=== PATIENT | male | born 1960 | race Caucasian/White ===

== ENCOUNTER 2016-11-01 15:02 | Day surgery (SDC) | payer MEDICARE, MEDICAID ==
[~2016-11-01] VITALS: Ht 170.2 cm; Wt 86.2 kg
[~2016-11-01 15:02] MED LIST: BISOPROLOL FUMA1 TA4 PO; DOXAZOSIN 4MG TA4 MG PO; GABAPENTIN300 MG PO; GEMFIBROZIL600 MG PO; HYDROCODONE BIT1 T39 PO; HYDROCODONE-APA1 TA2 PO; LOVASTATIN20 MG PO; NEXIUM40 MG PO; PHENERGAN25 M3 PO; PRAVACHOL 20MG.20 MG PO; TRAZODONE 50MG50 MG PO; TRICOR160 MG PO; VALIUM 10MG TAB10 MG PO; ZANTAC 150150 MG PO; ZYRTEC 10MG TAB10 MG PO
[2016-11-01 15:21] VITALS: BP 154/83
[2016-11-01 15:33] VITALS: BP 154/83
[2016-11-01 15:35] VITALS: BP 154/83
[2016-11-01 15:50] VITALS: BP 144/81
--- NOTE | 2016-11-01 15:53 | Procedure Note ---
Procedure detail Date of procedure: 11/01/16 Anesthesiologist: Surendra Dupree CRNA Complications: None Pre-procedure diagnosis: Osteoarthritis bilateral knees Post-procedure diagnosis: Same Indications for procedure: Patient's a pleasant 56-year-old white male that we have been treating her pain clinic for chronic cervical neck pain. Chronic lumbar back pain. Most recently bilateral knee pain secondary to degenerative osteoporosis. Patient presents today for bilateral intra-articular knee injections. Patient has been told in the past he has severe degenerative osteoarthritis bilateral knees. He's had steroid injections in the past. These seem to give him 6-8 months of relief. Procedure detail: Details of procedure is going to the patient. The patient taken to procedure room and placed in a sitting position. Area over the lateral knees was cleansed using chlorhexidine as a cleansing solution. Using 25-gauge needle the RIGHT knee joint was access from the lateral inferior border of the patella. 3 mL of 0.25 percent Marcaine +3 mL of 1 percent lidocaine and 40mg of Depo-Medrol were injected. The same was carried out in the LEFT knee. Patient all the procedure without difficulty. There were no complications. Plan and disposition: Patient was reevaluated 10 minutes post procedure. He reports one or percent improved terms bilateral knee pain. at 1552
== END 2016-11-01 15:50 | disposition home or self-care (01) ==
LOC: PM 15:02
PROC: 3E0U33Z Introduction of Anti-inflammatory into Joints, Percutaneous Approach (ICD-10-PCS; principal; 2016-11-01)
PROC: 3E0U3BZ Introduction of Anesthetic Agent into Joints, Percutaneous Approach (ICD-10-PCS; 2016-11-01)
DX: M17.0 Bilateral primary osteoarthritis of knee (principal)
CPT/HCPCS: J1030

== ENCOUNTER 2017-05-02 12:57 | Day surgery (SDC) | payer MEDICARE, MEDICAID ==
[~2017-05-02] VITALS: Ht 170.2 cm; Wt 83.9 kg
[2017-05-02 13:29] VITALS: BP 112/66
[2017-05-02 13:49] VITALS: BP 112/66
[2017-05-02 13:51] VITALS: BP 126/81
--- NOTE | 2017-05-02 14:03 | Procedure Note ---
Procedure detail Date of procedure: 05/02/17 Anesthesiologist: Surendra Dupree Complications: None Pre-procedure diagnosis: Degenerative disc disease lumbar spine multiple spread lumbar facet arthropathy. Lumbar spondylosis. Post-procedure diagnosis: Same. Indications for procedure: Very pleasant 57-year-old white male that comes our procedure clinic today for radial frequency ablation on the LEFT at L4-5 and L5-S1. Patient responded very well to medial branch blocks at the same levels. He'll return in 2 weeks for the RIGHT side same levels. Patient was scheduled originally for RIGHT side RFA L4-5 and L5-S1. After examination today patient has more pain on the LEFT lower lumbar area. Patient requesting LEFT L4-5 and L5-S1 RFA prior to the RIGHT. Procedure detail: The procedure was explained to the patient in detail. Consent form was signed. Patient was taken back to the procedure room, where noninvasive monitors were placed. This included noninvasive blood pressure cuff and pulse oximeter. The patient was placed prone on the C-arm table. The area over the lumbar spine was cleansed using chlorhexidine as cleansing solution. Using fluoroscopy guidance, markers were placed over the pedicle at the LEFT 4-5, L5-S1. 1% Lidocaine was used to anesthetize the skin with a 25-gauge needle at these markers. Using fluoroscopy guidance the radiofrequency probe was used to access the superior margin of the pedicle at LEFT L4-5 and L5-S1. After negative motor stimulation, 2 mls of 0.25% Marcaine and 10 mg of Depo-Medrol were injected into each needle. We then proceeded with radial frequency ablation at all 3 levels at 80 degrees Celsius 60 seconds. After the lesion was formed the needles were withdrawn. Band-Aids were applied. The patient tolerated the procedure without difficulty. There were no complications Plan and disposition: Patient was reevaluated 10 minutes post procedure. He's doing very well. He'll return to see us in 2 weeks for the RIGHT side L4-5 and L5-S1 RFA. at 1402
[2017-05-02 14:06] VITALS: BP 130/70
== END 2017-05-02 14:07 | disposition home or self-care (01) ==
LOC: PM 12:57
PROC: 3E0T3TZ Introduction of Destructive Agent into Peripheral Nerves and Plexi, Percutaneous Approach (ICD-10-PCS; principal; 2017-05-02)
PROC: BR161ZZ Fluoroscopy of Lumbar Facet Joint(s) using Low Osmolar Contrast (ICD-10-PCS; 2017-05-02)
DX: M51.36 Other intervertebral disc degeneration, lumbar region (principal); M12.88 Other specific arthropathies, not elsewhere classified, other specified site; M47.896 Other spondylosis, lumbar region
CPT/HCPCS: J1030

== ENCOUNTER → 2017-05-16 | Day surgery (SDC) | payer MEDICARE, MEDICAID ==
[~2017-05-16] VITALS: Ht 170.2 cm; Wt 83.9 kg
[~2017-05-16] MED LIST changes: +SYMBICORT1 AE1 IH
[2017-05-16 14:30] VITALS: BP 140/80
[2017-05-16 15:12] VITALS: BP 115/72; BP 140/80
[2017-05-16 15:14] VITALS: BP 127/79
[2017-05-16 15:38] VITALS: BP 128/82
--- NOTE | 2017-05-16 15:49 | Procedure Note ---
Procedure detail Date of procedure: 05/16/17 Anesthesiologist: Surendra Dupree Complications: None Pre-procedure diagnosis: Degenerative disease lumbar spine multiple levels lumbar radiculopathy symptoms. Lumbar facet arthropathy. Lumbar spondylosis. Post-procedure diagnosis: Same. Indications for procedure: This patient's a very pleasant 57-year-old white male the returns for procedure clinic today for RIGHT side RFA L4-5, L5-S1. Patient is status post LEFT side RFA same levels. He reports significant improvement terms of LEFT side lumbar back pain. Procedure detail: The procedure was explained to the patient in detail. Consent form was signed. Patient was taken back to the procedure room, where noninvasive monitors were placed. This included noninvasive blood pressure cuff and pulse oximeter. The patient was placed prone on the C-arm table. The area over the lumbar spine was cleansed using chlorhexidine as cleansing solution. Using fluoroscopy guidance, markers were placed over the pedicle at the L4-5, L5-S1. 1% Lidocaine was used to anesthetize the skin with a 25-gauge needle at these markers. Using fluoroscopy guidance the radiofrequency probe was used to access the superior margin of the pedicle at L4-5, L5-S1. After negative motor stimulation, 2 mls of 0.25% Marcaine and 10 mg of Depo-Medrol were injected into each needle. We then proceeded with radial frequency ablation at all 3 levels at 80 degrees Celsius 60 seconds. After the lesion was formed the needles were withdrawn. Band-Aids were applied. The patient tolerated the procedure without difficulty. There were no complications Plan and disposition: Patient was evaluated 10 minutes post procedure. He's doing very well. He'll return to see us in pain clinic for further evaluation. at 1432
== END ==
LOC: PM 14:20
PROC: 3E0T3TZ Introduction of Destructive Agent into Peripheral Nerves and Plexi, Percutaneous Approach (ICD-10-PCS; principal; 2017-05-16)
PROC: BR161ZZ Fluoroscopy of Lumbar Facet Joint(s) using Low Osmolar Contrast (ICD-10-PCS; 2017-05-16)
DX: M54.06 Panniculitis affecting regions of neck and back, lumbar region (principal); M51.16 Intervertebral disc disorders with radiculopathy, lumbar region
CPT/HCPCS: J1030

== ENCOUNTER → 2017-07-04 | Day surgery (SDC) | payer MEDICARE, MEDICAID ==
[~2017-07-04] VITALS: Ht 170.2 cm; Wt 81.6 kg
[2017-07-04 15:09] VITALS: BP 128/79
[2017-07-04 15:48] VITALS: BP 128/79
[2017-07-04 15:51] VITALS: BP 153/101
[2017-07-04 16:00] VITALS: BP 141/77
--- NOTE | 2017-07-04 16:01 | Procedure Note ---
Procedure detail Date of procedure: 07/04/17 Anesthesiologist: Surendra Dupree Complications: None Pre-procedure diagnosis: Degenerative disc disease cervical. Cervical radiculopathy symptoms. Post-procedure diagnosis: Same Indications for procedure: Very pleasant 57 showed white male that we've been treating for quite some time for cervical neck pain and cervical radiculopathy symptoms. This is secondary to degenerative disease cervical spine multiple levels. Procedure detail: Procedure:Cervical epidural steroid injection Informed consent was obtained and the risks and benefits of the procedure were explained to the patient. The patient was taken to the procedure room and noninvasive monitors placed, including noninvasive blood pressure cuff and pulse oximeter. The neck was prepped using Betadine as a cleansing solution. The C6-C7 interspace was palpated. The skin and subcutaneous tissues were anesthetized using lidocaine 1.5% and a 25-gauge needle. After this an 18-gauge Touhy epidural needle was placed into the C6-C7 interspace and advanced using loss of resistance and fluoroscopy guidance to air until the epidural space was encountered. After confirmation of needle placement in the epidural space, a solution containing lidocaine 1.5%, 4 mL and Depo-Medrol 80 mg was incrementally injected into the cervical epidural space.~ The patient tolerated the procedure well with no complications. The patient was observed in the Pain Clinic and then discharged home neurologically intact. Plan and disposition: Patient tolerated procedure without difficulty. at 1601
== END ==
LOC: PM 14:47
PROC: 3E0R3BZ Introduction of Anesthetic Agent into Spinal Canal, Percutaneous Approach (ICD-10-PCS; principal; 2017-07-04)
PROC: 3E0R33Z Introduction of Anti-inflammatory into Spinal Canal, Percutaneous Approach (ICD-10-PCS; 2017-07-04)
PROC: B01B1ZZ Fluoroscopy of Spinal Cord using Low Osmolar Contrast (ICD-10-PCS; 2017-07-04)
DX: M50.10 Cervical disc disorder with radiculopathy, unspecified cervical region (principal)
CPT/HCPCS: J1040; Q9966

== ENCOUNTER → 2017-07-31 | Outpatient (CLI) | payer MEDICARE, MEDICAID ==
--- NOTE | 2017-08-01 10:02 | RADIOLOGY REPORT PS360 ---
MRI-L-SPINE W/O, MRI-3D RENDERING/MYELOGRAM HISTORY: Left-sided low back pain with intermittent left leg pain and tingling DDD LUMBAR ORDERING PHYSICIAN: Woody Fofana MD PATIENT AGE: 57 years COMPARISON: 04/11/2014 TECHNIQUE: Standard multiplanar multiecho sequences are performed without contrast. 3-D MIP and myelographic images are also rendered and reviewed FINDINGS: There is normal alignment. The spinal cord ends at the T12-L1 level. T11-T12: Mild degenerative disc disease. T12-L1 and L1-L2 have an unremarkable appearance. L2-L3: Mild disc desiccation with mild concentric bulging disc and mild facet and ligamentum flavum hypertrophy. L3-L4: Minimal bulging disc with facet and ligamentum flavum hypertrophy with moderate bilateral lateral recess narrowing and mild bilateral foraminal narrowing. Slightly greater on the right. L4-5: Minimal bulging disc with mild facet and ligamentum hypertrophy slightly greater on the left with moderate left-sided foraminal narrowing. L5-S1: Minimal bulging disc slightly eccentric towards the left with mild facet hypertrophic change and mild left-sided foraminal narrowing. No canal stenosis or extruded herniated disc. IMPRESSION: 1. Mild multilevel lumbar spondylosis as described above with minimal bulging disc and facet and ligamentum flavum hypertrophy with lateral recess and foraminal narrowing. Please see above for detailed description at each level. 2. Overall no significant change compared to the previous exam. 3. No disc herniation or bony canal stenosis
== END ==
LOC: RAD 08:00
DX: M51.36 Other intervertebral disc degeneration, lumbar region (principal)